=== PATIENT | male | born 2000 | race Caucasian/White ===

== ENCOUNTER 2024-10-21 14:18 | Emergency (ER) | payer OTHER ==
[~2024-10-21] VITALS: Ht 170.2 cm; Wt 59.1 kg
[~2024-10-21 14:18] MED LIST: AMOX-457 PO
[2024-10-21 14:41] VITALS: TEMP 98.1
[2024-10-21] MEDS: CEPHALEXIN MONOHYDRATE 500 MG CAPSULE PO ONE (16:13)
[2024-10-21] MEDS: ACETAMINOPHEN 500 MG TABLET PO ONE (16:13)
[2024-10-21] MEDS: DOXYCYCLINE HYCLATE 100 MG TABLET PO ONE (16:13)
[2024-10-21 16:18] VITALS: BP 110/55; PULSE 72; RESP 16; O2SAT 99
[2024-10-21] MEDS ORDERED: CEPH-558 PO (16:27)
[2024-10-21] MEDS ORDERED: ACET-66 PO (16:27)
[2024-10-21] MEDS ORDERED: DOXY-354 PO (16:27)
== END 2024-10-21 16:44 | disposition home or self-care (01) ==
LOC: EMS 14:43
DX: L03.116 Cellulitis of left lower limb (principal); F12.90 Cannabis use, unspecified, uncomplicated; Z79.899 Other long term (current) drug therapy
CPT/HCPCS: 99284; Z7502; Z7610